=== PATIENT | female | born 1975 | race Caucasian/White ===

== ENCOUNTER 2024-02-07 13:19 | Emergency (ER) | payer SELFPAY ==
[2024-02-07 13:27] VITALS: TEMP 97.5
--- NOTE | 2024-02-07 13:34 | ED ---
General Adult HPI - General Chief complaint: Shortness of Breath Stated complaint: SOB Time Seen by Provider: 02/07/24 13:25 Source: patient, RN notes reviewed, old records reviewed Mode of arrival: EMS Limitations: no limitations - History of Present Illness Initial comments: This is a 48-year-old female and she comes in complaining of dyspnea for a week. Patient states 3 weeks ago she had COVID. Patient states she also has a history of asthma and COPD. 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 Patient states she took her treatment today but it does not seem to help patient states walking up a flight of stairs she has to stop and catch her breath constantly. Patient denies any chest pain or palpitation. Patient denies any back pain. Patient has any nausea vomiting diarrhea. Patient states he is on steroids for 4 days but it has not helped. - Related Data Home Medications Medication Instructions Recorded Confirmed Albuterol Nebulized [Ventolin 2.5 mg INHALATION RT-Q4H PRN 02/07/24 02/07/24 Nebulized] Albuterol Sulfate [Ventolin HFA] 2 puff INHALATION RT-QID PRN 02/07/24 02/07/24 Chlorpheniramine Maleate 4 mg PO Q4H PRN 02/07/24 02/07/24 [Chlor-Trimeton] Gabapentin 600 mg PO TID 02/07/24 02/07/24 Ibuprofen [Motrin Ib] 600 mg PO Q6H PRN 02/07/24 02/07/24 Melatonin 10 mg PO HS 02/07/24 02/07/24 Mirtazapine [Remeron] 15 mg PO HS 02/07/24 02/07/24 Nicotine 21Mg/24Hr Patch [Habitrol] 1 patch TRANSDERM DAILY 02/07/24 02/07/24 busPIRone HCl [Buspar] 10 mg PO TID 02/07/24 02/07/24 guaiFENesin [guaiFENesin Oral 200 mg PO Q4H PRN 02/07/24 02/07/24 Solution] lisinopriL [Zestril] 20 mg PO DAILY 02/07/24 02/07/24 predniSONE [Deltasone] 20 mg PO BID 02/07/24 02/07/24 Previous Rx's Medication Instructions Recorded Albuterol Inhaler [Ventolin Hfa 1 - 2 puff INHALATION Q6HR PRN #2 02/07/24 Inhaler] each predniSONE [Deltasone] 40 mg PO DAILY #8 tab 02/07/24 Allergies Allergy/AdvReac Type Severity Reaction Status Date / Time latex Allergy Anaphylaxis Verified 02/07/24 14:28 /Rash Penicillins Allergy Unknown Verified 02/07/24 14:28 Childhood Review of Systems ROS Statement: Those systems with pertinent positive or pertinent negative responses have been documented in the HPI. ROS Other: All systems not noted in ROS Statement are negative. Past Medical History Past Medical History: Asthma, COPD, Hypertension History of Any Multi-Drug Resistant Organisms: None Reported Past Surgical History: Cholecystectomy Additional Past Surgical History / Comment(s): D & C, nephrostomy tube, Past Psychological History: ADD/ADHD, Anxiety, Depression Smoking Status: Current every day smoker, Vaper Past Alcohol Use History: None Reported Past Drug Use History: Methamphetamine General Exam - General Exam Comments Initial Comments: GENERAL: Patient is well-developed and well-nourished. Patient is nontoxic and well- hydrated and is in mild distress. ENT: Neck is soft and supple. No significant lymphadenopathy is noted. Oropharynx is clear. Moist mucous membranes. Neck has full range of motion without eliciting any pain. EYES: The sclera were anicteric and conjunctiva were pink and moist. Extraocular movements were intact and pupils were equal round and reactive to light. Eyelids were unremarkable. PULMONARY: Occasional expiratory wheeze CARDIOVASCULAR: There is a regular rate and rhythm without any murmurs gallops or rubs. ABDOMEN: Soft and nontender with normal bowel sounds. SKIN: Skin is clear with no lesions or rashes and otherwise unremarkable. NEUROLOGIC: Patient is alert and oriented x3. Cranial nerves II through XII are grossly intact. Motor and sensory are also intact. Normal speech, volume and content. Symmetrical smile. MUSCULOSKELETAL: Normal extremities with adequate strength and full range of motion. No lower extremity swelling or edema. No calf tenderness. LYMPHATICS: No significant lymphadenopathy is noted PSYCHIATRIC: Normal psychiatric evaluation. Limitations: no limitations Course Vital Signs 02/07/24 02/07/24 02/07/24 13:21 13:28 15:42 Temperature 97.5 F L Pulse Rate 105 H 94 Respiratory 20 20 Rate Blood Pressure 116/71 O2 Sat by Pulse 99 Oximetry 02/07/24 15:50 Temperature Pulse Rate 90 Respiratory Rate Blood Pressure O2 Sat by Pulse Oximetry Medical Decision Making - Medical Decision Making EKG is interpreted by myself. EKG shows a sinus rhythm at 95 bpm CA interval is 141 QRS is 91 QT interval 345 QTc is 398. Patient's EKG shows no ST segment elevation or depression Was pt. sent in by a medical professional or institution (JESSIE Lind, HVAC PROJECT MANAGER, urgent care, hospital, or custodial...) When possible be specific @ -Patient was sent in by [facility] Did you speak to anyone other than the patient for history (EMS, parent, family, police, friend...)? What history was obtained from this source @ -No Did you review nursing and triage notes (agree or disagree)? Why? @ -I reviewed and agree with nursing and triage notes Were old charts reviewed (outside hosp., previous admission, EMS record, old EKG, old radiological studies, urgent care reports/EKG's, custodial records)? Report findings @ -No old charts were reviewed Differential Diagnosis? @ -Differential Dyspnea: Coronary syndrome, arrhythmia, tamponade, asthma, COPD, pulmonary embolism, pneumonia, pneumothorax, pulmonary effusion, anaphylaxis, diabetic ketoacidosis, flailed chest, pulmonary contusion, diaphragmatic rupture, anemia, neuromuscular, this is not meant to be an all-inclusive list. EKG interpreted by me (3pts min.). @ -As above X-rays interpreted by me (1pt min.). @ -None done CT interpreted by me (1pt min.). @ -CT of the chest shows no PE or no pneumonia U/S interpreted by me (1pt. min.). @ -None done What testing was considered but not performed or refused? (CT, X-rays, U/S, labs)? Why? @ -None What meds were considered but not given or refused? Why? @ -None Did you discuss the management of the patient with other professionals (professionals i.e. JESSIE Lind, HVAC PROJECT MANAGER, lab, RT, psych nurse, aids social worker, cement conveyor operator, teacher, aeronautical engineering officer, trimming caser)? Give summary @ -No Was smoking cessation discussed for >3mins.? @ -No Was critical care preformed (if so, how long)? @ -No Were there social determinants of health that impacted care today? How? (Homelessness, low income, unemployed, alcoholism, drug addiction, transportation, low edu. Level, literacy, decrease access to med. care, [place] [facility], rehab)? @ -No Was there de-escalation of care discussed even if they declined (Discuss DNR or withdrawal of care, Hospice)? DNR status @ -No What co-morbidities impacted this encounter? (DM, HTN, Smoking, COPD, CAD, Cancer, CVA, ARF, Chemo, Hep., AIDS, mental health diagnosis, sleep apnea, morbid obesity)? @ -None Was patient admitted / discharged? Hospital course, mention meds given and route, prescriptions, significant lab abnormalities, going to OR and other pertinent info. @ -Patient's lab work was within normal limits except for the white count. Patient did get a CAT scan of the chest showed no acute abnormality. Patient to get breathing treatment in the emergency department while steroids can she continue to feel somewhat short of breath but she was oxygenating 99 to 100% on room air Undiagnosed new problem with uncertain prognosis? @ -No Drug Therapy requiring intensive monitoring for toxicity (Heparin, Nitro, Insulin, Cardizem)? @ -No Were any procedures done? @ -No Diagnosis/symptom? @ -Bronchospasms Acute, or Chronic, or Acute on Chronic? @ -Acute Uncomplicated (without systemic symptoms) or Complicated (systemic symptoms)? @ -Complicated Side effects of treatment? @ -No Exacerbation, Progression, or Severe Exacerbation? @ -No Poses a threat to life or bodily function? How? (Chest pain, USA, CA, pneumonia, PE, COPD, DKA, ARF, appy, cholecystitis, CVA, Diverticulitis, Homicidal, Suicidal, threat to staff... and all critical care pts) @ -No - Lab Data Result diagrams: 02/07/24 13:40 02/07/24 13:40 Lab Results 02/07/24 02/07/24 02/07/24 Range/Units 13:40 13:40 13:40 WBC 16.6 H (3.8-10.6) k/uL RBC 4.84 (3.80-5.40) m/uL Hgb 13.8 (11.4-16.0) gm/dL Hct 43.5 (34.0-46.0) % MCV 89.8 (80.0-100.0) fL MCH 28.4 (25.0-35.0) pg MCHC 31.7 (31.0-37.0) g/dL RDW 13.5 (11.5-15.5) % Plt Count 315 (150-450) k/uL MPV 7.1 Neutrophils % 87 % Lymphocytes % 8 % Monocytes % 4 % Eosinophils % 1 % Basophils % 0 % Neutrophils # 14.4 H (1.3-7.7) k/uL Lymphocytes # 1.3 (1.0-4.8) k/uL Monocytes # 0.6 (0-1.0) k/uL Eosinophils # 0.1 (0-0.7) k/uL Basophils # 0.0 (0-0.2) k/uL PT 10.4 (10.0-12.5) sec INR 0.9 (<1.2) APTT 22.1 (22.0-30.0) sec D-Dimer <0.17 (<0.60) mg/L FEU Sodium 138 (137-145) mmol/L Potassium 5.4 H (3.5-5.1) mmol/L Chloride 109 H (98-107) mmol/L Carbon Dioxide 22 (22-30) mmol/L Anion Gap 7 mmol/L BUN 20 H (7-17) mg/dL Creatinine 0.58 (0.52-1.04) mg/dL Est GFR (CKD-EPI)AfAm >90 (>60 ml/min/1.73 sqM) Est GFR (CKD-EPI)NonAf >90 (>60 ml/min/1.73 sqM) Glucose 91 (74-99) mg/dL Calcium 9.5 (8.4-10.2) mg/dL Magnesium 1.9 (1.6-2.3) mg/dL Total Bilirubin 0.8 (0.2-1.3) mg/dL AST 37 H (14-36) U/L ALT 25 (4-34) U/L Alkaline Phosphatase 62 (38-126) U/L Troponin I (0.000-0.034) ng/mL Total Protein 7.5 (6.3-8.2) g/dL Albumin 4.3 (3.5-5.0) g/dL 11/05/24 Range/Units 13:40 WBC (3.8-10.6) k/uL RBC (3.80-5.40) m/uL Hgb (11.4-16.0) gm/dL Hct (34.0-46.0) % MCV (80.0-100.0) fL MCH (25.0-35.0) pg MCHC (31.0-37.0) g/dL RDW (11.5-15.5) % Plt Count (150-450) k/uL MPV Neutrophils % % Lymphocytes % % Monocytes % % Eosinophils % % Basophils % % Neutrophils # (1.3-7.7) k/uL Lymphocytes # (1.0-4.8) k/uL Monocytes # (0-1.0) k/uL Eosinophils # (0-0.7) k/uL Basophils # (0-0.2) k/uL PT (10.0-12.5) sec INR (<1.2) APTT (22.0-30.0) sec D-Dimer (<0.60) mg/L FEU Sodium (137-145) mmol/L Potassium (3.5-5.1) mmol/L Chloride (98-107) mmol/L Carbon Dioxide (22-30) mmol/L Anion Gap mmol/L BUN (7-17) mg/dL Creatinine (0.52-1.04) mg/dL Est GFR (CKD-EPI)AfAm (>60 ml/min/1.73 sqM) Est GFR (CKD-EPI)NonAf (>60 ml/min/1.73 sqM) Glucose (74-99) mg/dL Calcium (8.4-10.2) mg/dL Magnesium (1.6-2.3) mg/dL Total Bilirubin (0.2-1.3) mg/dL AST (14-36) U/L ALT (4-34) U/L Alkaline Phosphatase (38-126) U/L Troponin I <0.012 (0.000-0.034) ng/mL Total Protein (6.3-8.2) g/dL Albumin (3.5-5.0) g/dL Disposition Clinical Impression: Acute bronchospasm Disposition: HOME SELF-CARE Instructions (If sedation given, give patient instructions): Bronchospasm (ED) Prescriptions: predniSONE [Deltasone] 40 mg PO DAILY #8 tab Albuterol Inhaler [Ventolin Hfa Inhaler] 1 - 2 puff INHALATION Q6HR PRN #2 each PRN Reason: Difficulty breathing Is patient prescribed a controlled substance at d/c from ED?: No Referrals: Nonstaff,Physician [Primary Care Provider] - 1-2 days Time of Disposition: 16:15
[2024-02-07 13:53] LABS: Basophils % (A) 0 %; Eosinophils # (A) 0.1 k/uL (0-0.7); Eosinophils % (A) 1 %; HCT 43.5 % (34.0-46.0); HGB 13.8 gm/dL (11.4-16.0); Lymphocytes # (A) 1.3 k/uL (1.0-4.8); Lymphocytes % (A) 8 %; MCH 28.4 pg (25.0-35.0); MCHC 31.7 g/dL (31.0-37.0); MCV 89.8 fL (80.0-100.0); Mean Platelet Volume 7.1; Monocytes # (A) 0.6 k/uL (0-1.0); Monocytes % (A) 4 %; Neutrophils # (A) 14.4 k/uL (1.3-7.7); Neutrophils % (A) 87 %; Platelet Count 315 k/uL (150-450); RBC 4.84 m/uL (3.80-5.40); RDW 13.5 % (11.5-15.5); WBC 16.6 k/uL (3.8-10.6)
[2024-02-07 14:04] LABS: ALT 25 U/L (4-34); African American GFR (CKD) >90 (>60 ml/min/1.73 sqM); Anion Gap 7 mmol/L; Blood Urea Nitrogen 20 mg/dL (7-17); Calcium 9.5 mg/dL (8.4-10.2); Carbon Dioxide 22 mmol/L (22-30); Chloride 109 mmol/L (98-107); Glucose 91 mg/dL (74-99); Non-African American GFR(CKD) >90 (>60 ml/min/1.73 sqM); Sodium 138 mmol/L (137-145); Total Bilirubin 0.8 mg/dL (0.2-1.3)
[2024-02-07 14:15] LABS: INR 0.9 (<1.2); Partial Thromboplastin Time 22.1 sec (22.0-30.0); Prothrombin Time 10.4 sec (10.0-12.5)
[2024-02-07 14:25] LABS: AST 37 U/L (14-36); Albumin 4.3 g/dL (3.5-5.0); Alkaline Phosphatase 62 U/L (38-126); Magnesium 1.9 mg/dL (1.6-2.3); Potassium 5.4 mmol/L (3.5-5.1); Total Protein 7.5 g/dL (6.3-8.2)
--- NOTE | 2024-02-07 14:36 | CT ---
EXAMINATION TYPE: CT chest angio for PE DATE OF EXAM: 02/07/2024 2:31 PM COMPARISON: None CLINICAL INDICATION: Female, 48 years old with history of Dyspnea; Dyspnea. scared heart pt TECHNIQUE/CONTRAST: CTA scan of the thorax is performed with IV Contrast, patient injected with 62ml mL of Isovue 370, CA P images are created and reviewed these are created on a separate workstation.. CT DLP: 460.3 mGycm, Automated exposure control for dose reduction was used. FINDINGS: Pulmonary Artery: There is no evidence for a filling defect within the pulmonary vasculature to sugge st acute pulmonary embolism. The pulmonary artery is of normal size. Lungs/Pleura: No evidence of focal consolidation, pleural effusion or pneumothorax. Airway: Large airways are patent. Heart: Heart is within normal limits for size. Vasculature: No evidence of aortic aneurysm. Mediastinum: No gross evidence of adenopathy. Musculoskeletal: No acute osseous abnormalities Soft Tissues/lymph nodes: Unremarkable. Lower neck: No significant findings. Upper Abdomen: The gallbladder surgically absent. There is a large amount stool in the colon. IMPRESSION: No evidence of pulmonary embolism. Follow up recommendations for incidental pulmonary nodules, if there are any, are per [employer] or [employer]. https://radiopaedia.org/articles/fmnqnmwpwd-nhdyhzc-yhmiikszi-psucmb-[email or web address]-[email or web address]?lang=us [facility], , 02/07/2024 2:34 PM
[2024-02-07] MEDS: IPRATROPIUM-ALBUTEROL 3 ML NEB INHALATION STA (15:42)
[2024-02-07] MEDS: methylPREDNISolone SOD SUCCI 125 MG/2 ML VIAL IV STA (16:11)
[2024-02-07 16:13] VITALS: BP 117/79; PULSE 101; RESP 18
== END 2024-02-07 16:42 | disposition home or self-care (01) ==
LOC: EC 13:19
DX: J98.01 Acute bronchospasm (principal); F17.290 Nicotine dependence, other tobacco product, uncomplicated; Z88.0 Allergy status to penicillin; Z91.040 Latex allergy status
CPT/HCPCS: 36415; 94640; 93005; 85379; 80053; 83735; 84484; 85025; 85610; 85730; 71275; 99285; 96374; Q9967; J2919